=== PATIENT | male | born 1975 | race Hispanic/Latino ===

== ENCOUNTER 2017-07-02 11:19 | Emergency (ER) | payer SELFPAY ==
[2017-07-02] MEDS ORDERED: IBUPROFEN 600 MG TABLET ONE (11:49)
[2017-07-02 12:11] LABS: RAPID GROUP A STREP NEGATIVE (NEGATIVE)
== END 2017-07-02 13:02 | disposition home or self-care (01) ==
LOC: EDH 11:19
DX: J02.9 Acute pharyngitis, unspecified (principal); M79.1 Myalgia; Z72.0 Tobacco use
CPT/HCPCS: 87804; 87880

== ENCOUNTER 2020-08-20 18:55 | Emergency (ER) | payer OTHER ==
[2020-08-20] MEDS ORDERED: ASPIRIN 325 MG TABLET ONE (19:14)
[2020-08-20 19:28] LABS: EOSINOPHILS % (AUTO) 2.9 % (0.0-8.0); HEMATOCRIT 43.8 % (42-54); LYMPHOCYTES % (AUTO) 29.5 % (21.0-51.0); MEAN CORPUSCULAR HEMOGLOBIN 31.1 pg (27.0-33.0); MEAN CORPUSCULAR HGB CONC 34.9 g/dL (32.0-36.0); MONOCYTES % (AUTO) 10.8 % (3.0-13.0); NEUTROPHILS % (AUTO) 55.5 % (40.0-77.0); PLATELET COUNT (AUTO) 258 K/uL (130-400); RED BLOOD CELL COUNT(AUTO) 4.92 MIL/uL (4.50-6.20); RED CELL DISTRIBUTION WIDTH 11.9 % (11.0-15.5); WHITE BLOOD COUNT (AUTO) 6.9 K/uL (4.8-10.8)
[2020-08-20 19:38] LABS: POTASSIUM 3.6 mmol/L (3.5-5.1)
[2020-08-20 19:40] LABS: INR 0.97 (0.85-1.15); PROTHROMBIN TIME 10.6 SEC (9.6-11.6)
[2020-08-20 19:41] LABS: PARTIAL THROMBOPLASTIN TIME 25.2 SEC (26.3-35.5)
[2020-08-20 19:47] LABS: ALBUMIN 3.9 g/dL (3.5-5.0); BILIRUBIN,TOTAL 0.4 mg/dL (0.2-1.0); TOTAL PROTEIN, SERUM 7.8 g/dL (6.0-8.3)
[2020-08-20] MEDS ORDERED: PANTOPRAZOLE 40 MG/VIAL ONE (21:14)
== END 2020-08-20 23:33 | disposition home or self-care (01) ==
LOC: EDH 18:55
DX: K21.00 Gastro-esophageal reflux disease with esophagitis, without bleeding (principal); K76.0 Fatty (change of) liver, not elsewhere classified; R07.89 Other chest pain
CPT/HCPCS: 36415; 71045; 76705; 80053; 82550; 84484; 85025; 85610; 85730; 93005; 96374; 99285; C9113

== ENCOUNTER 2023-04-01 10:45 | Emergency (ER) | payer OTHER ==
[~2023-04-01] VITALS: Ht 157.5 cm; Wt 67.1 kg
[2023-04-01 11:29] LABS: SARS-CoV-2, RNA, NAAT NEGATIVE SARS CoV-2 (NEGATIVE)
[2023-04-01 11:37] LABS: INFLUENZA TYPE A Negative For Type A (NEGATIVE); INFLUENZA TYPE B Negative For Type B (NEGATIVE)
[2023-04-01] MEDS ORDERED: OSEL75 PO (12:52)
[2023-04-01 13:03] VITALS: BP 112/76; PULSE 70; RESP 16; O2SAT 98
== END 2023-04-01 13:08 | disposition home or self-care (01) ==
LOC: EDH 10:45
DX: B34.9 Viral infection, unspecified (principal); F17.200 Nicotine dependence, unspecified, uncomplicated; Z20.822 Contact with and (suspected) exposure to COVID-19
CPT/HCPCS: 99284; 71045; 87635; 87804 ×2; C9803

== ENCOUNTER 2024-09-22 09:57 | Emergency (ER) | payer SELFPAY ==
[~2024-09-22] VITALS: Ht 165.1 cm; Wt 72.6 kg
[~2024-09-22 09:57] MED LIST: KETO10TA2 PO; OSEL75 PO
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
[2024-09-22] MEDS: ibuPROFEN 800 MG TAB PO ONE (10:38)
[2024-09-22] MEDS: cePHALexin 500 MG CAPSULE PO ONE (10:38)
[2024-09-22] MEDS ORDERED: IBUP-2077 PO (11:40)
[2024-09-22] MEDS ORDERED: CEPH500B PO (11:40)
[2024-09-22 11:42] VITALS: BP 141/87; PULSE 90; RESP 18; TEMP 98.2; O2SAT 99
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
== END 2024-09-22 11:50 | disposition home or self-care (01) ==
LOC: EDH 09:57
DX: S61.432A Puncture wound without foreign body of left hand, initial encounter (principal); L03.114 Cellulitis of left upper limb; Z79.899 Other long term (current) drug therapy; F17.200 Nicotine dependence, unspecified, uncomplicated; W22.8XXA Striking against or struck by other objects, initial encounter; Y93.89 Activity, other specified; Y92.89 Other specified places as the place of occurrence of the external cause; Y99.8 Other external cause status
CPT/HCPCS: 73130; 99283